=== PATIENT | male | born 1985 | race Caucasian/White ===

== ENCOUNTER 2018-11-07 06:28 | Emergency (ER) | payer OTHER ==
--- NOTE | 2018-11-07 07:28 | EDM.PDOC ---
ED HPI GENERAL MEDICAL PROBLEM - General Chief Complaint: General Stated Complaint: LOW BODY TEMP Time Seen by Provider: 11/07/18 06:58 Source of Information: Reports: Patient, RN Notes Reviewed - History of Present Illness INITIAL COMMENTS - FREE TEXT/NARRATIVE: Patient has been having intermittent abdominal pain for about the last 3 weeks primarily right lower abdomen. At the clinic last , had normal labs at that time, CT per his account showed some "mild colitis". He states he was given recommendation to get a colonoscopy, the clinic is to be calling him this morning to give him an appointment for that. He has had chills the last couple of days, this morning states he felt clammy, his took his temp and it was "93.7. Upon arrival to ED temporal temp 96.6, rectal 100.2. He has had no Nausea or vomiting. Appetite has been mildly diminished the last few days but in general has been eating and drinking okay. States that however when he does eat then he will often get increased abdominal pain. He has not been having diarrhea. He states his stools have been somewhat pencil thin for at least 2 or 3 years. He is not aware of any history of colon cancer in his family. Abdomen Pain Score (Numeric/FACES): 2 - Related Data Allergies Allergy/AdvReac Type Severity Reaction Status Date / Time No Known Allergies Allergy Verified 11/07/18 06:40 Home Meds: Home Meds Cyclobenzaprine [Flexeril] 5 mg PO DAILY PRN 11/07/18 [History] LORazepam [Ativan] 0.5 mg PO TID PRN #14 tablet 11/07/18 [Rx] Past Medical History Cardiovascular History: Reports: Other (See Below) Other Cardiovascular History: hyperthropic cardiomyopathy Gastrointestinal History: Reports: Chronic Constipation, Other (See Below) Other Gastrointestinal History: colitis? Musculoskeletal History: Reports: Back Pain, Chronic Psychiatric History: Reports: Anxiety - Past Surgical History HEENT Surgical History: Reports: Tonsillectomy Musculoskeletal Surgical History: Reports: Other (See Below) Other Musculoskeletal Surgeries/Procedures:: disectomy Social & Family History - Tobacco Use Smoking Status *Q: Never Smoker - Caffeine Use Caffeine Use: Reports: None - Recreational Drug Use Recreational Drug Use: Yes Drug Use in Last 12 Months: No Recreational Drug Type: Reports: Marijuana/Hashish Recreational Drug Use Frequency: Not Used In Over 6 Months ED ROS GENERAL - Review of Systems Review Of Systems: See Below Constitutional: Reports: Chills, Other (Patient felt clammy this morning) HEENT: Denies: Sinus Problem, Throat Pain Respiratory: Denies: Shortness of Breath, Cough Cardiovascular: Denies: Chest Pain GI/Abdominal: Reports: Abdominal Pain (Mild intermittent right lower abdomen for the past 2 or 3 weeks), Decreased Appetite. Denies: Constipation, Diarrhea , Nausea, Vomiting : Reports: No Symptoms Musculoskeletal: Reports: No Symptoms Skin: Reports: No Symptoms ED EXAM, GENERAL - Physical Exam Exam: See Below General Appearance: Alert, Anxious Eye Exam: Bilateral Eye: PERRL Head: Atraumatic. No: Facial Swelling Neck: Supple Respiratory/Chest: No Respiratory Distress, Lungs Clear, Normal Breath Sounds Cardiovascular: Regular Rate, Rhythm GI/Abdominal: Soft, Other (Very mild tenderness right lower abdomen, remainder of abdomen soft and nontender). No: Guarding, Rebound Back Exam: No: CVA Tenderness (L), CVA Tenderness (R) Extremities: Normal Inspection Neurological: Alert, Oriented, No Motor/Sensory Deficits Psychiatric: Normal Affect Skin Exam: Warm, Dry, Normal Color Course - Vital Signs Last Recorded V/S: Last Vital Signs Temp 98.0 F 11/07/18 08:34 Pulse 74 11/07/18 08:34 Resp 16 11/07/18 08:34 BP 122/80 11/07/18 08:34 Pulse Ox 96 11/07/18 08:34 - Orders/Labs/Meds Labs: Laboratory Tests 11/07/18 11/07/18 11/07/18 Range/Units 07:21 07:21 07:21 WBC 5.08 (4.23-9.07) K/mm3 RBC 5.50 (4.63-6.08) M/mm3 Hgb 15.4 (13.7-17.5) gm/L Hct 44.6 (40.1-51.0) % MCV 81.1 (79.0-92.2) fl MCH 28.0 (25.7-32.2) pg MCHC 34.5 (32.2-35.5) g/dl RDW Std Deviation 39.5 (35.1-43.9) fL Plt Count 215 (163-337) K/mm3 MPV 10.9 (9.4-12.3) fl Neut % (Auto) 70.4 H (34.0-67.9) % Lymph % (Auto) 19.9 L (21.8-53.1) % [place] % (Auto) 7.5 (5.3-12.2) % Eos % (Auto) 1.6 (0.8-7.0) Baso % (Auto) 0.4 (0.1-1.2) % Neut # (Auto) 3.58 (1.78-5.38) K/mm3 Lymph # (Auto) 1.01 L (1.32-3.57) K/mm3 [place] # (Auto) 0.38 (0.30-0.82) K/mm3 Eos # (Auto) 0.08 (0.04-0.54) K/mm3 Baso # (Auto) 0.02 (0.01-0.08) K/mm3 Sodium 139 (136-145) mEq/L Potassium 3.5 (3.5-5.1) mEq/L Chloride 104 (98-107) mEq/L Carbon Dioxide 26 (21-32) mEq/L Anion Gap 12.5 (5-15) BUN 10 (7-18) mg/dL Creatinine 1.1 (0.7-1.3) mg/dL Est Cr Clr Drug Dosing 108.95 mL/min Estimated GFR (MDRD) > 60 (>60) mL/min BUN/Creatinine Ratio 9.1 L (14-18) Glucose 98 (74-106) mg/dL Calcium 8.7 (8.5-10.1) mg/dL Total Bilirubin 1.6 H (0.2-1.0) mg/dL AST 13 L (15-37) U/L ALT 30 (16-63) U/L Alkaline Phosphatase 56 (46-116) U/L C-Reactive Protein < 0.2 (<1.0) mg/dL Total Protein 7.0 (6.4-8.2) g/dl Albumin 4.0 (3.4-5.0) g/dl Globulin 3.0 gm/dL Albumin/Globulin Ratio 1.3 (1-2) Meds: Medications Discontinued Medications Generic Name Dose Route Start Last Admin Trade Name Freq PRN Reason Stop Dose Admin Lorazepam 0.5 mg 02/25/19 08:26 11/07/18 08:33 Ativan PO 11/07/18 08:27 0.5 mg ONETIME ONE Administration - Re-Assessments/Exams Free Text/Narrative Re-Assessment/Exam: 11/07/18 09:12 White blood count did come back normal, C-reactive protein less than 0.2., He did just have CT scan done at clinic 4 days ago. Based on his symptoms the plan for colonoscopy is certainly appropriate. He states the clinic is going to be calling him this morning to get him set up for that. He states he has chronic underlying anxiety and now feeling much more anxious worrying about colon cancer , something of that nature. That is mainly why he is here this morning. We have given Ativan 0.5 mg orally right now and will allow him to continue taking 0.5 mg every 8-12 hours when necessary severe anxiety, I did discuss driving precautions with him. Discharge instructions as documented. Departure - Departure Time of Disposition: 08:27 Disposition: Home, Self-Care 01 Condition: Fair Clinical Impression: Anxiety Abdominal pain Qualifiers: Abdominal location: right lower quadrant Qualified Code(s): R10.31 - Right lower quadrant pain - Discharge Information Prescriptions: LORazepam [Ativan] 0.5 mg PO TID PRN #14 tablet PRN Reason: Anxiety Instructions: Generalized Anxiety Disorder, Adult, Abdominal Pain, Adult, Easy- to-Read Referrals: Bhupendra Macias Jr, MD [Primary Care Provider] - Forms: ED Department Discharge Additional Instructions: Drink plenty of water to maintain hydration, clear liquids and bland diet as tolerated. Your white blood count and a different marker for infection were both normal this morning. The clinic should be calling you for an appointment to get scheduled for colonoscopy. You've been given a dose of Ativan 0.5 mg orally here in the ED. Continue that every 8-12 hours if needed for severe anxiety. Do not drive when taking this medication if you feel at all sleepy, drowsy or dizzy. Follow-up with Dr. Macias as needed. Return to ED as needed if symptoms worsening in any way.
[2018-11-07] MEDS ORDERED: LORazepam 0.5 MG Tab PO ONE (08:26)
== END 2018-11-07 08:38 | disposition home or self-care (01) ==
LOC: JD.ED 06:28
DX: F41.9 Anxiety disorder, unspecified (principal); R10.31 Right lower quadrant pain; Z98.890 Other specified postprocedural states
CPT/HCPCS: 36415; 80053; 85025; 86140; 99284; A9270; 99283

== ENCOUNTER 2020-07-28 19:25 | Emergency (ER) | payer OTHER ==
--- NOTE | 2020-07-28 20:10 | EDM.PDOC ---
ED HPI GENERAL MEDICAL PROBLEM - General Chief Complaint: Lower Extremity Injury/Pain Stated Complaint: POSS BROKEN RIGHT TOE Time Seen by Provider: 07/28/20 19:51 Source of Information: Reports: Patient, RN Notes Reviewed History Limitations: Reports: No Limitations - History of Present Illness INITIAL COMMENTS - FREE TEXT/NARRATIVE: Patient is a 35-year-old male who presents to the ED for the evaluation of a right toe injury. Patient notes that he was in his home, in a darkened hallway and he ended up stubbing his right third toe on a ottoman. This was roughly 1 hour prior to arrival to the ER. He said it looked dislocated. He tried to reposition it, but it did not seem to help much. There is some minor pain, and he states he just cannot move the toe like he used to. He did not take any sort of pain medications prior to coming to the ER. Patient denies any other sick- like symptoms, fever/chills, cough/shortness of breath, nausea/vomiting/diarrhea. Toe-[place] Pain Score (Numeric/FACES): 4 - Related Data Allergies Allergy/AdvReac Type Severity Reaction Status Date / Time No Known Allergies Allergy Verified 07/28/20 19:51 Home Meds: Home Meds Cyclobenzaprine [Flexeril] 5 mg PO DAILY PRN 11/07/18 [History] Past Medical History Cardiovascular History: Reports: Other (See Below) Other Cardiovascular History: hyperthropic cardiomyopathy Gastrointestinal History: Reports: Chronic Constipation, Other (See Below) Other Gastrointestinal History: colitis? Musculoskeletal History: Reports: Back Pain, Chronic Psychiatric History: Reports: Anxiety - Infectious Disease History Infectious Disease History: Reports: Chicken Pox - Past Surgical History HEENT Surgical History: Reports: Tonsillectomy GI Surgical History: Reports: Colonoscopy Neurological Surgical History: Reports: Discectomy Musculoskeletal Surgical History: Reports: Other (See Below) Other Musculoskeletal Surgeries/Procedures:: disectomy Social & Family History - Tobacco Use Tobacco Use Status *Q: Never Tobacco User Second Hand Smoke Exposure: No - Caffeine Use Caffeine Use: Reports: None - Recreational Drug Use Recreational Drug Use: No - Living Situation & Occupation Living situation: Reports: Single Occupation: Employed Review of Systems - Review of Systems Review Of Systems: Comprehensive ROS is negative, except as noted in HPI. ED EXAM, GENERAL - Physical Exam Exam: See Below Exam Limited By: No Limitations General Appearance: Alert, WD/WN, No Apparent Distress Respiratory/Chest: No Respiratory Distress, Lungs Clear, Normal Breath Sounds, No Accessory Muscle Use, Chest Non-Tender Cardiovascular: Normal Peripheral Pulses, Regular Rate, Rhythm, No Murmur Peripheral Pulses: 2+: Dorsalis Pedis (L), Dorsalis Pedis (R) Extremities: Normal Inspection, Normal Capillary Refill, Limited Range of Motion (of right 3rd toe) Neurological: Alert, Oriented, Normal Cognition, No Motor/Sensory Deficits Psychiatric: Normal Affect, Normal Mood Skin Exam: Warm, Dry, Intact, Normal Color, No Rash Course - Vital Signs Last Recorded V/S: Last Vital Signs Temp 98.3 F 07/28/20 19:49 Pulse 98 07/28/20 19:49 Resp 16 07/28/20 19:49 BP 133/91 H 07/28/20 19:49 Pulse Ox 98 07/28/20 19:49 - Orders/Labs/Meds Orders: Active Orders 24 hr Category Date Time Status Toes Third Digit Rt T7 [CR] Stat Exams 07/28/20 20:07 Ordered DME for Discharge [COMM] Routine Oth 07/28/20 20:57 Ordered - Re-Assessments/Exams Free Text/Narrative Re-Assessment/Exam: 07/28/20 20:10 Patient presents to the ED for evaluation of a right toe injury. We will get x- rays for evaluation. Patient is not requesting anything for pain at this time. 07/28/20 20:57 The patient did end up fracturing his third toe on his right foot, this is at the proximal base of the proximal phalanx. This does not appear to be displaced, I reviewed the x-rays with Dr. Shepherd and he states to place him in a postop shoe and have him follow-up sometime in a week or 2. We will discharge home with general recommendations and do as such. Departure - Departure Time of Disposition: 20:58 Disposition: Home, Self-Care 01 Condition: Good Clinical Impression: Fracture of toe of right foot Qualifiers: Encounter type: initial encounter Toe: lesser toe Fracture type: closed Phalanx: proximal Fracture alignment: nondisplaced Qualified Code(s): S92.514A - Nondisplaced fracture of proximal phalanx of right lesser toe(s), initial encounter for closed fracture - Discharge Information *PRESCRIPTION DRUG MONITORING PROGRAM REVIEWED*: No *COPY OF PRESCRIPTION DRUG MONITORING REPORT IN PATIENT HEBER: No Instructions: Toe Fracture, [id number] Referrals: Bhupendra Macias Jr, MD [Primary Care Provider] - Forms: ED Department Discharge Additional Instructions: You have been evaluated in the ED for your right third toe injury. Your x-ray demonstrated a fracture of the base of the first phalanx of your third toe. This does not appear to be displaced, and a review with our promotions specialist notes that this will likely not need pinning and should heal by itself. You were given a postop shoe to wear, to provide further healing of the toe. Please use ice as tolerated to the affected area. Please try to elevate the affected area to relieve swelling. You may take Tylenol 500 mg or ibuprofen 600mg q6 hrs for pain relief. Please do so until you have a tolerable level of pain with activity. Do not exceed 4000mg Tylenol or 3200mg ibuprofen in a 24 hour time period. Please follow-up with Dr. Shepherd or his PA Leandra Andrea in a week to 10 days time, to make sure that the fracture is healing as appropriate. Their telephone number is [phone]. Please return to ED if your symptoms should change or worsen. Sepsis Event Note (ED) - Evaluation Sepsis Screening Result: No Definite Risk - Focused Exam Vital Signs: Vital Signs Temp Pulse Resp BP Pulse Ox 07/28/20 19:49 98.3 F 98 16 133/91 H 98 - My Orders Last 24 Hours: My Active Orders 07/28/20 20:07 Toes Third Digit Rt T7 [CR] Stat 07/28/20 20:57 DME for Discharge [COMM] Routine - Assessment/Plan Last 24 Hours: My Active Orders 07/28/20 20:07 Toes Third Digit Rt T7 [CR] Stat 07/28/20 20:57 DME for Discharge [COMM] Routine
--- NOTE | 2020-07-29 13:45 | CR ---
PROCEDURE INFORMATION: Exam: XR Right Toe(s) Exam date and time: 07/28/2020 8:15 PM Age: 35 years old Clinical indication: Injury or trauma; Blunt trauma; Toes; Right lesser toe(s); Injury date: 07/28/2020; Injury details: Stubbed toe in hallway, pain. . . . 3rd digit right foot TECHNIQUE: Imaging protocol: XR Right toes. Views: Minimum 2 views. COMPARISON: No relevant prior studies available. FINDINGS: Bones/joints: There is an acute nondisplaced fracture through the proximal aspect of the 3rd digit proximal phalanx. The fracture does not appear to involve the articular surface. The bones are otherwise intact and normal in appearance. The joints are normally aligned and articulated. Soft tissues: The soft tissues are within normal limits. IMPRESSION: Acute nondisplaced fracture through the proximal phalanx of the 3rd toe. Thank you for allowing us to participate in the care of your patient. Dictated and Authenticated by: Sabina Perez MD 07/28/2020 10:07 PM Central Time ([place] & [place]) [place]
== END 2020-07-28 21:15 | disposition home or self-care (01) ==
LOC: JD.ED 19:25
DX: S92.514A Nondisplaced fracture of proximal phalanx of right lesser toe(s), initial encounter for closed fracture (principal); Z90.49 Acquired absence of other specified parts of digestive tract; W22.8XXA Striking against or struck by other objects, initial encounter; Y92.009 Unspecified place in unspecified non-institutional (private) residence as the place of occurrence of the external cause
CPT/HCPCS: 73660-26-T7; 73660-T7; 99282; 99283-25

== ENCOUNTER 2021-03-11 13:32 | Emergency (ER) | payer OTHER ==
--- NOTE | 2021-03-11 14:22 | EDM.PDOC ---
ED HPI GENERAL MEDICAL PROBLEM - General Chief Complaint: Cardiovascular Problem Stated Complaint: DIZZY AND LIGHTHEADED Time Seen by Provider: 03/11/21 13:58 Source of Information: Reports: Patient, RN Notes Reviewed - History of Present Illness INITIAL COMMENTS - FREE TEXT/NARRATIVE: 35 yr old male has been having some mild lightheadedness and dizziness the past few day and also feeling mildly short of breath primarily at rest. No exertional symptoms, he walked 3 miles yesterday with no sx when walking. Hx IHSS diagnosed quite a few yrs ago. He is on no meds for that. He is due for a 2 yr follow up echo in about 2 months. No recent cough, fever, chills. He has had both moderna covid vaccinations. Headache Pain Score (Numeric/FACES): 5 - Related Data Allergies Allergy/AdvReac Type Severity Reaction Status Date / Time No Known Allergies Allergy Verified 03/11/21 13:41 Home Meds: Home Meds Cyclobenzaprine [Flexeril] 5 mg PO DAILY PRN 11/07/18 [History] Past Medical History HEENT History: Reports: None Cardiovascular History: Reports: Other (See Below) Other Cardiovascular History: hyperthropic cardiomyopathy Respiratory History: Reports: None Gastrointestinal History: Reports: Chronic Constipation, Other (See Below) Other Gastrointestinal History: colitis? Genitourinary History: Reports: None Musculoskeletal History: Reports: Back Pain, Chronic Neurological History: Reports: None Psychiatric History: Reports: Anxiety Endocrine/Metabolic History: Reports: None Hematologic History: Reports: None Immunologic History: Reports: None Oncologic (Cancer) History: Reports: None Dermatologic History: Reports: None - Infectious Disease History Infectious Disease History: Reports: Chicken Pox - Past Surgical History HEENT Surgical History: Reports: Tonsillectomy GI Surgical History: Reports: Colonoscopy Male Surgical History: Reports: None Neurological Surgical History: Reports: Discectomy Musculoskeletal Surgical History: Reports: Other (See Below) Other Musculoskeletal Surgeries/Procedures:: disectomy Social & Family History - Family History Family Medical History: No Pertinent Family History - Tobacco Use Tobacco Use Status *Q: Never Tobacco User - Caffeine Use Caffeine Use: Reports: Soda - Recreational Drug Use Recreational Drug Use: No - Living Situation & Occupation Living situation: Reports: Single Occupation: Employed ED ROS GENERAL - Review of Systems Review Of Systems: See Below Constitutional: Denies: Fever, Chills, Diaphoresis Respiratory: Reports: Shortness of Breath Cardiovascular: Reports: Lightheadedness. Denies: Chest Pain GI/Abdominal: Denies: Abdominal Pain, Nausea, Vomiting Musculoskeletal: Denies: Shoulder Pain, Arm Pain, Back Pain Skin: Reports: No Symptoms Neurological: Reports: Dizziness. Denies: Numbness, Tingling, Trouble Speaking, Difficulty Walking, Weakness ED EXAM, GENERAL - Physical Exam Exam: See Below General Appearance: Alert, No Apparent Distress Head: Atraumatic Neck: Supple, Other (No JVD) Respiratory/Chest: No Respiratory Distress, Lungs Clear, Normal Breath Sounds. No: Rales, Rhonchi, Wheezing Cardiovascular: Regular Rate, Rhythm GI/Abdominal: Soft, Non-Tender Back Exam: No: CVA Tenderness (L), CVA Tenderness (R) Extremities: Non-Tender. No: Pedal Edema, Leg Pain, Redness Neurological: Alert, Oriented, No Motor/Sensory Deficits Skin Exam: Warm, Dry, Normal Color, No Rash #1 Interpretation EKG Date: 03/11/21 Rhythm: NSR [place]: Normal P-Wave: Present QRS: Normal ST-T: Other (t wave inversion lead III, no st elevation or depression) Course - Vital Signs Last Recorded V/S: Last Vital Signs Temp 97.4 F 03/11/21 13:46 Pulse 75 03/11/21 13:46 Resp 18 03/11/21 13:46 BP 123/84 03/11/21 13:46 Pulse Ox 99 03/11/21 13:46 Orthostatic Blood Pressure [ 135/93 Standing] Orthostatic Blood Pressure [ 138/95 Sitting] Orthostatic Blood Pressure [ 123/84 Supine] - Orders/Labs/Meds Labs: Laboratory Tests 03/11/21 03/11/21 Range/Units 14:46 14:46 WBC 6.20 (4.23-9.07) K/mm3 RBC 5.49 (4.63-6.08) M/mm3 Hgb 15.7 (13.7-17.5) gm/dl Hct 44.3 (40.1-51.0) % MCV 80.7 (79.0-92.2) fl MCH 28.6 (25.7-32.2) pg MCHC 35.4 (32.2-35.5) g/dl RDW Std Deviation 39.3 (35.1-43.9) fL Plt Count 230 (163-337) K/mm3 MPV 10.5 (9.4-12.3) fl Neut % (Auto) 61.8 (34.0-67.9) % Lymph % (Auto) 28.4 (21.8-53.1) % [place] % (Auto) 8.5 (5.3-12.2) % Eos % (Auto) 1.0 (0.8-7.0) Baso % (Auto) 0.3 (0.1-1.2) % Neut # (Auto) 3.83 (1.78-5.38) K/mm3 Lymph # (Auto) 1.76 (1.32-3.57) K/mm3 [place] # (Auto) 0.53 (0.30-0.82) K/mm3 Eos # (Auto) 0.06 (0.04-0.54) K/mm3 Baso # (Auto) 0.02 (0.01-0.08) K/mm3 Sodium 142 (136-145) mEq/L Potassium 4.0 (3.5-5.1) mEq/L Chloride 104 (98-107) mEq/L Carbon Dioxide 25 (21-32) mEq/L Anion Gap 17.0 H (5-15) BUN 11 (7-18) mg/dL Creatinine 0.9 (0.7-1.3) mg/dL Est Cr Clr Drug Dosing 130.70 mL/min Estimated GFR (MDRD) > 60 (>60) mL/min BUN/Creatinine Ratio 12.2 L (14-18) Glucose 91 (70-99) mg/dL Calcium 9.4 (8.5-10.1) mg/dL Total Bilirubin 0.9 (0.2-1.0) mg/dL AST 22 (15-37) U/L ALT 54 (16-63) U/L Alkaline Phosphatase 67 (46-116) U/L Total Protein 7.5 (6.4-8.2) g/dl Albumin 4.0 (3.4-5.0) g/dl Globulin 3.5 gm/dL Albumin/Globulin Ratio 1.1 (1-2) TSH 3rd Generation 0.859 (0.358-3.74) uIU/mL - Re-Assessments/Exams Free Text/Narrative Re-Assessment/Exam: 03/12/21 16:34 CBC, CMP normal, TSH normal, EKG did not show any acute findings. Sats are good, NSR with no ectopy, discharge instr. as documented. Departure - Departure Time of Disposition: 16:05 Disposition: Home, Self-Care 01 Condition: Fair Clinical Impression: Dizziness of unknown cause, Hypertrophic cardiomyopathy Dyspnea Qualifiers: Dyspnea type: unspecified Qualified Code(s): R06.00 - Dyspnea, unspecified Instructions: Dizziness, [id number] Referrals: Sander Red MD [Primary Care Provider] - Forms: ED Department Discharge Additional Instructions: Continue to drink plenty of water to maintain hydration. Continue regular exercise. Return to ED if symptoms worsening in any way. See Dr Kelly as planned. Sepsis Event Note (ED) - Evaluation Sepsis Screening Result: No Definite Risk
== END 2021-03-11 16:15 | disposition home or self-care (01) ==
LOC: JD.ED 13:32
DX: R42 Dizziness and giddiness (principal); I42.2 Other hypertrophic cardiomyopathy; R06.02 Shortness of breath
CPT/HCPCS: 36415; 80053; 84443; 85025; 93010; 99283; 99285-25

== ENCOUNTER 2021-03-13 20:19 | Emergency (ER) | payer OTHER ==
--- NOTE | 2021-03-13 21:21 | EDM.PDOC ---
ED HPI GENERAL MEDICAL PROBLEM - General Chief Complaint: General Stated Complaint: RASH ON BOTH SIDES OF STOMACH-NOT FEELING WELL Time Seen by Provider: 03/13/21 20:42 Source of Information: Reports: Patient History Limitations: Reports: No Limitations - History of Present Illness INITIAL COMMENTS - FREE TEXT/NARRATIVE: Al is a 35-year-old male who has numerous somatic complaints. Patient states he was treated for a fungal ear infection on his right ear and has been followed up by ENT 2 weeks ago initially and 1 week ago and is on acetic acid drops. Patient is also complaining of having some frontal sinus pressure which he describes as mild for which the ENT did not feel he had a sinus infection and his PCP which he saw earlier today felt this was more related to anxiety. Patient denies ever having sinusitis. He denies any fever chills nausea vomiting or diarrhea and currently does not have a headache. Patient is complaining of very mild rash on his lower abdomen on the left lower it appears to be circular in nature and about the size of a half dollar and the right side is less formed both are nontender. Patient denies any current sore throat. Onset: Gradual Duration: Week(s): (2) Location: Reports: Head, Abdomen Quality: Reports: Ache Severity: Mild Headache Pain Score (Numeric/FACES): 3 - Related Data Allergies Allergy/AdvReac Type Severity Reaction Status Date / Time No Known Allergies Allergy Verified 03/13/21 20:30 Home Meds: Home Meds Acetic Acid 5 drop EARRT TID 03/13/21 [History] Clotrimazole [Mycelex] 1 tab PO ASDIRECTED 03/13/21 [History] FLUoxetine HCl [Prozac] 20 mg PO DAILY 03/13/21 [History] Hydrocort/Neomycin/Polymyxin B [Jagyysej-Aohqgpwjg-XR Otic Susp] 10 ml EARRT QID #1 bottle 03/13/21 [Rx] Past Medical History HEENT History: Reports: None Cardiovascular History: Reports: Other (See Below) Other Cardiovascular History: hyperthropic cardiomyopathy Respiratory History: Reports: None Gastrointestinal History: Reports: Chronic Constipation, Other (See Below) Other Gastrointestinal History: colitis? Genitourinary History: Reports: None Musculoskeletal History: Reports: Back Pain, Chronic Neurological History: Reports: None Psychiatric History: Reports: Anxiety Endocrine/Metabolic History: Reports: Obesity/BMI 30+ Hematologic History: Reports: None Immunologic History: Reports: None Oncologic (Cancer) History: Reports: None Dermatologic History: Reports: None - Infectious Disease History Infectious Disease History: Reports: Chicken Pox - Past Surgical History HEENT Surgical History: Reports: Tonsillectomy GI Surgical History: Reports: Colonoscopy Neurological Surgical History: Reports: Discectomy Musculoskeletal Surgical History: Reports: Other (See Below) Other Musculoskeletal Surgeries/Procedures:: disectomy Social & Family History - Family History Family Medical History: No Pertinent Family History - Tobacco Use Tobacco Use Status *Q: Never Tobacco User - Caffeine Use Caffeine Use: Reports: Soda - Recreational Drug Use Recreational Drug Use: No - Living Situation & Occupation Living situation: Reports: Single Occupation: Employed ED ROS GENERAL - Review of Systems Review Of Systems: See Below Constitutional: Reports: No Symptoms. Denies: Fever, Chills, Malaise HEENT: Reports: Ear Pain, Sinus Problem. Denies: Ear Discharge, Eye Discharge Respiratory: Reports: No Symptoms. Denies: Shortness of Breath, Cough Cardiovascular: Reports: No Symptoms Endocrine: Reports: No Symptoms GI/Abdominal: Reports: No Symptoms : Reports: No Symptoms Musculoskeletal: Reports: No Symptoms Skin: Reports: Rash, Erythema Neurological: Reports: No Symptoms Psychiatric: Reports: No Symptoms ED EXAM, GENERAL - Physical Exam Exam: See Below Exam Limited By: No Limitations General Appearance: Alert, No Apparent Distress Ear Exam: Right Ear: Erythema, Swelling, TM Dull, TM Red, TM Bulging Head: Atraumatic, Normocephalic. No: Sinus Tenderness Neck: Normal Inspection, Supple, Non-Tender Respiratory/Chest: No Respiratory Distress Cardiovascular: Regular Rate, Rhythm GI/Abdominal: Normal Bowel Sounds, Soft, Non-Tender Extremities: Normal Inspection Neurological: Alert, Oriented Psychiatric: Normal Affect Skin Exam: Warm, Erythema Lymphatic: No Adenopathy Course - Vital Signs Text/Narrative:: I am planning on putting the patient on an antibiotic eardrop for his right ear. I do not feel the rash he has is anything other than a viral exanthem and very mild. I am recommending Afrin hczx-mka-qhjpvye for sinus pressure and have instructed him on how I want him to use that. He is to follow-up with his ENT doctor over the next 14 days. He may return to ER if symptoms are worse. Last Recorded V/S: Last Vital Signs Temp 97.8 F 03/13/21 20:27 Pulse 105 H 03/13/21 20:27 Resp 16 03/13/21 20:27 BP 178/97 H 03/13/21 20:27 Pulse Ox 94 L 03/13/21 20:27 Departure - Departure Time of Disposition: 21:44 Disposition: Home, Self-Care 01 Condition: Good Clinical Impression: Otitis media - Discharge Information Referrals: Sander Red MD [Primary Care Provider] - Forms: ED Department Discharge Additional Instructions: Abscess prescribed follow-up with ENT in 2 weeks if not improving. Sooner if worse. Follow-up with PCP if symptoms continue. Return to ER symptoms are worse. Sepsis Event Note (ED) - Evaluation Sepsis Screening Result: No Definite Risk - Focused Exam Vital Signs: Vital Signs Temp Pulse Resp BP Pulse Ox 03/13/21 20:27 97.8 F 105 H 16 178/97 H 94 L
== END 2021-03-13 21:59 | disposition home or self-care (01) ==
LOC: JD.ED 20:19
DX: H66.91 Otitis media, unspecified, right ear (principal)
CPT/HCPCS: 99283

== ENCOUNTER 2021-03-18 06:37 | Emergency (ER) | payer OTHER ==
--- NOTE | 2021-03-18 07:31 | EDM.PDOC ---
ED HPI GENERAL MEDICAL PROBLEM - General Chief Complaint: Gastrointestinal Problem Stated Complaint: DIARRHEA/MENTAL HEALTH ISSUES Time Seen by Provider: 03/18/21 06:58 Source of Information: Reports: Patient, RN Notes Reviewed - History of Present Illness INITIAL COMMENTS - FREE TEXT/NARRATIVE: 35 yr old male with watery diarrhea for the last 2 to 3 days, frequent episodes per day. Has made him real anxious, not able to sleep well the last couple of nights. No N/v or current abd pain. Has been on abx, had cdif checked at clinic yesterday and that was neg. - Related Data Allergies Allergy/AdvReac Type Severity Reaction Status Date / Time No Known Allergies Allergy Verified 03/13/21 20:30 Home Meds: Home Meds Acetic Acid 5 drop EARRT TID 03/13/21 [History] Clotrimazole [Mycelex] 1 tab PO ASDIRECTED 03/13/21 [History] FLUoxetine HCl [Prozac] 20 mg PO DAILY 03/13/21 [History] Hydrocort/Neomycin/Polymyxin B [Oirjivta-Pvsrbpreg-JS Otic Susp] 10 ml EARRT QID #1 bottle 03/13/21 [Rx] LORazepam [Ativan] 0.5 mg PO BID PRN #4 tab 03/18/21 [Rx] Past Medical History HEENT History: Reports: None Cardiovascular History: Reports: Other (See Below) Other Cardiovascular History: hyperthropic cardiomyopathy Respiratory History: Reports: None Gastrointestinal History: Reports: Chronic Constipation, Other (See Below) Other Gastrointestinal History: colitis? Genitourinary History: Reports: None Musculoskeletal History: Reports: Back Pain, Chronic Neurological History: Reports: None Psychiatric History: Reports: Anxiety Endocrine/Metabolic History: Reports: Obesity/BMI 30+ Hematologic History: Reports: None Immunologic History: Reports: None Oncologic (Cancer) History: Reports: None Dermatologic History: Reports: None - Infectious Disease History Infectious Disease History: Reports: Chicken Pox - Past Surgical History HEENT Surgical History: Reports: Tonsillectomy GI Surgical History: Reports: Colonoscopy Neurological Surgical History: Reports: Discectomy Musculoskeletal Surgical History: Reports: Other (See Below) Other Musculoskeletal Surgeries/Procedures:: disectomy Social & Family History - Family History Family Medical History: No Pertinent Family History - Tobacco Use Tobacco Use Status *Q: Never Tobacco User Second Hand Smoke Exposure: No - Caffeine Use Caffeine Use: Reports: None - Recreational Drug Use Recreational Drug Use: No - Living Situation & Occupation Living situation: Reports: Single Occupation: Employed ED ROS GENERAL - Review of Systems Review Of Systems: See Below Constitutional: Denies: Fever, Chills, Diaphoresis HEENT: Reports: No Symptoms Respiratory: Denies: Shortness of Breath Cardiovascular: Denies: Chest Pain GI/Abdominal: Reports: Diarrhea. Denies: Abdominal Pain, Hematochezia, Melena, Nausea, Vomiting Musculoskeletal: Reports: No Symptoms Skin: Reports: No Symptoms Neurological: Reports: No Symptoms Psychiatric: Reports: Anxiety ED EXAM, NEURO - Physical Exam Exam: See Below General Appearance: Alert, No Apparent Distress Throat/Mouth: Normal Inspection Head Exam: Atraumatic Neck: Supple Respiratory/Chest: No Respiratory Distress, Lungs Clear, Normal Breath Sounds Cardiovascular: Regular Rate, Rhythm GI/Abdominal: Soft, Non-Tender. No: Guarding Neurological: Alert, No Motor/Sensory Deficits Extremities: Normal Inspection Psychiatric: Normal Affect, Normal Mood Skin Exam: Warm, Dry, Normal Color, No Rash Course - Vital Signs Last Recorded V/S: Last Vital Signs Temp 97.0 F 03/18/21 07:37 Pulse 74 03/18/21 07:37 Resp 16 03/18/21 07:37 BP 116/81 03/18/21 07:37 Pulse Ox 96 03/18/21 07:37 Departure - Departure Time of Disposition: 07:26 Disposition: Home, Self-Care 01 Clinical Impression: Diarrhea, Anxiety, Insomnia - Discharge Information Prescriptions: LORazepam [Ativan] 0.5 mg PO BID PRN #4 tab PRN Reason: Anxiety Instructions: Diarrhea, Adult, Generalized Anxiety Disorder, Adult Referrals: Sander Red MD [Primary Care Provider] - Forms: ED Department Discharge Additional Instructions: Clear liquids only until this evening as discussed. Than very careful bland diet as tolerated. Probiotic 3 times today and than twice daily for a week. Follow up clinic if not much better and getting back towards normal within 2 to 3 days as expected. Ativan 0.5 mg this AM to help you relax and sleep for the next few nights if needed. Prescription has been sent electronic to [facility]. Sepsis Event Note (ED) - Evaluation Sepsis Screening Result: No Definite Risk - Focused Exam Vital Signs: Vital Signs Temp Pulse Resp BP Pulse Ox 03/18/21 07:37 97.0 F 74 16 116/81 96 03/18/21 06:46 98.5 F 85 18 150/95 H 98
== END 2021-03-18 07:37 | disposition home or self-care (01) ==
LOC: JD.ED 06:37
DX: R19.7 Diarrhea, unspecified (principal); F41.9 Anxiety disorder, unspecified; G47.00 Insomnia, unspecified; E66.9 Obesity, unspecified; Z68.30 Body mass index [BMI] 30.0-30.9, adult
CPT/HCPCS: 99283

== ENCOUNTER 2021-03-25 06:20 | Emergency (ER) | payer OTHER ==
--- NOTE | 2021-03-25 07:14 | EDM.PDOC ---
ED HPI GENERAL MEDICAL PROBLEM - General Chief Complaint: Gastrointestinal Problem Stated Complaint: DIARRHEA Time Seen by Provider: 03/25/21 07:13 - History of Present Illness INITIAL COMMENTS - FREE TEXT/NARRATIVE: 35-year-old male presents the emergency room with diarrhea. Patient states that started about 11 days ago. He is lost but 19 pounds. He was seen initially and was tested had cultures done including C. difficile. And these were all negative. Patient's diarrhea started after infection she was taking cefdinir for sinus infection for couple of days. The antibiotic was stopped. Patient gets intermittent abdominal discomfort that is quite bothersome for mostly in the lower abdomen. He denies any burning or frequency with urination. He has up to 15 BMs a day unformed. These usually have a little bit of bright red blood associated with it. Patient denies fevers or chills. Patient was seen again in the walk-in clinic yesterday he was retested and his C. difficile came back positive last night for toxin B. Abdomen Pain Score (Numeric/FACES): 4 - Related Data Allergies Allergy/AdvReac Type Severity Reaction Status Date / Time No Known Allergies Allergy Verified 03/25/21 06:43 Home Meds: Home Meds LORazepam [Ativan] 0.5 mg PO BID PRN #4 tab 03/18/21 [Rx] Cyclobenzaprine [Flexeril] 5 mg PO DAILY PRN 03/25/21 [History] Ondansetron [Zofran ODT] 4 mg PO Q6H PRN #12 tab.dis 03/25/21 [Rx] Vancomycin [Vancocin 125 MG Capsule] 125 mg PO QID #40 cap 03/25/21 [Rx] Past Medical History HEENT History: Reports: Otitis Media Cardiovascular History: Reports: Other (See Below) Other Cardiovascular History: hyperthropic cardiomyopathy Respiratory History: Reports: None Gastrointestinal History: Reports: Chronic Constipation, Other (See Below) Other Gastrointestinal History: colitis? Genitourinary History: Reports: None Musculoskeletal History: Reports: Back Pain, Chronic Neurological History: Reports: None Psychiatric History: Reports: Anxiety Endocrine/Metabolic History: Reports: Obesity/BMI 30+ Hematologic History: Reports: None Immunologic History: Reports: None Oncologic (Cancer) History: Reports: None Dermatologic History: Reports: None - Infectious Disease History Infectious Disease History: Reports: C-Difficile, Chicken Pox - Past Surgical History HEENT Surgical History: Reports: Tonsillectomy GI Surgical History: Reports: Colonoscopy Male Surgical History: Reports: None Neurological Surgical History: Reports: Discectomy Musculoskeletal Surgical History: Reports: Other (See Below) Other Musculoskeletal Surgeries/Procedures:: disectomy Social & Family History - Family History Family Medical History: No Pertinent Family History - Tobacco Use Tobacco Use Status *Q: Never Tobacco User - Caffeine Use Caffeine Use: Reports: Coffee - Recreational Drug Use Recreational Drug Use: No - Living Situation & Occupation Living situation: Reports: Single Occupation: Employed ED ROS GENERAL - Review of Systems Review Of Systems: See Below Constitutional: Reports: Weakness, Fatigue. Denies: Fever, Chills HEENT: Reports: No Symptoms Respiratory: Reports: No Symptoms Cardiovascular: Reports: No Symptoms GI/Abdominal: Reports: Abdominal Pain, Diarrhea, Decreased Appetite. Denies: Nausea, Vomiting : Reports: No Symptoms Musculoskeletal: Reports: No Symptoms Skin: Reports: No Symptoms Neurological: Reports: No Symptoms ED EXAM, GENERAL - Physical Exam Exam: See Below Exam Limited By: No Limitations General Appearance: Alert, No Apparent Distress Head: Atraumatic, Normocephalic Neck: Normal Inspection, Supple, Non-Tender, Full Range of Motion Respiratory/Chest: No Respiratory Distress, Lungs Clear, Normal Breath Sounds Cardiovascular: Regular Rate, Rhythm, No Edema, No Murmur GI/Abdominal: Normal Bowel Sounds, Soft, Tender (She has significant right lower quadrant discomfort with palpation to much lesser degree left lower quadrant discomfort. No significant suprapubic discomfort. No rigidity rebound or guarding appreciated) Back Exam: Normal Inspection. No: CVA Tenderness (L), CVA Tenderness (R) Extremities: Normal Inspection, No Pedal Edema Neurological: Alert, Oriented, Normal Cognition Course - Vital Signs Last Recorded V/S: Last Vital Signs Temp 36.3 C 03/25/21 06:35 Pulse 77 03/25/21 06:35 Resp 18 03/25/21 06:35 BP 127/85 03/25/21 06:35 Pulse Ox 100 03/25/21 06:35 - Orders/Labs/Meds Orders: Active Orders 24 hr Category Date Time Status Lactated Ringers [Ringers, Lactated] 1,000 ml Med 03/25/21 07:45 Active IV ASDIRECTED Medication Orders Lactated Ringer's (Ringers, Lactated) 1,000 mls @ 150 mls/hr IV ASDIRECTED ERLINDA Last Admin: 03/25/21 09:05 Dose: 150 mls/hr Documented by: MYNOR Labs: Laboratory Tests 03/25/21 03/25/21 03/25/21 Range/Units 07:30 07:50 07:50 WBC 4.91 (4.23-9.07) K/mm3 RBC 5.62 (4.63-6.08) M/mm3 Hgb 15.8 (13.7-17.5) gm/dl Hct 45.6 (40.1-51.0) % MCV 81.1 (79.0-92.2) fl MCH 28.1 (25.7-32.2) pg MCHC 34.6 (32.2-35.5) g/dl RDW Std Deviation 39.4 (35.1-43.9) fL Plt Count 236 (163-337) K/mm3 MPV 10.8 (9.4-12.3) fl Neutrophils % (Manual) 60 (40-60) % Band Neutrophils % 8 (0-10) % Lymphocytes % (Manual) 30 (20-40) % Atypical Lymphs % 0 % Monocytes % (Manual) 2 (2-10) % Eosinophils % (Manual) 0 L (0.8-7.0) % Basophils % (Manual) 0 L (0.2-1.2) Platelet Estimate Adequate Plt Morphology Comment Normal RBC Morph Comment Normal Sodium 143 (136-145) mEq/L Potassium 4.3 (3.5-5.1) mEq/L Chloride 106 (98-107) mEq/L Carbon Dioxide 30 (21-32) mEq/L Anion Gap 11.3 (5-15) BUN 8 (7-18) mg/dL Creatinine 1.0 (0.7-1.3) mg/dL Est Cr Clr Drug Dosing 117.63 mL/min Estimated GFR (MDRD) > 60 (>60) mL/min BUN/Creatinine Ratio 8.0 L (14-18) Glucose 100 H (70-99) mg/dL Calcium 9.5 (8.5-10.1) mg/dL Total Bilirubin 1.7 H (0.2-1.0) mg/dL AST 26 (15-37) U/L ALT 69 H (16-63) U/L Alkaline Phosphatase 70 (46-116) U/L Total Protein 7.6 (6.4-8.2) g/dl Albumin 4.2 (3.4-5.0) g/dl Globulin 3.4 gm/dL Albumin/Globulin Ratio 1.2 (1-2) Lipase 56 L (73-393) U/L Urine Color Light yellow (Yellow) Urine Appearance Clear (Clear) Urine pH 7.0 (5.0-8.0) Ur Specific [place] 1.015 (1.005-1.030) Urine Protein Negative (Negative) Urine Glucose (UA) Negative (Negative) Urine Ketones 1+ H (Negative) Urine Occult Blood Negative (Negative) Urine Nitrite Negative (Negative) Urine Bilirubin Negative (Negative) Urine Urobilinogen 0.2 (0.2-1.0) Ur Leukocyte Esterase Negative (Negative) Meds: Medications Generic Name Dose Route Start Last Admin Trade Name Freq PRN Reason Stop Dose Admin Lactated Ringer's 1,000 mls @ 150 mls/hr 03/25/21 07:45 03/25/21 09:05 Ringers, Lactated IV 150 mls/hr ASDIRECTED ERLINDA Administration Discontinued Medications Generic Name Dose Route Start Last Admin Trade Name Freq PRN Reason Stop Dose Admin Lactated Ringer's 1,000 mls @ 999 mls/hr 03/25/21 07:40 03/25/21 07:55 Ringers, Lactated IV 03/25/21 08:40 999 mls/hr .BOLUS ONE Administration - Radiology Interpretation Free Text/Narrative:: Received a liter of fluid he is doing okay. Labs reviewed white count is not elevated creatinine 1.0 apparently [facility] did send a prescription and I am not sure for what at the patient's request I will send in a prescription start him empirically on vancomycin 125 mg 4 times daily for 10 days and will give him a few Zofran in case these are needed. I explained to the patient absolutely no uncertain terms that he is to return to the worsening symptoms. Of also advised may take him several days before he starts noticing improvement. He should push lots of fluids. Departure - Departure Time of Disposition: 09:46 Disposition: Home, Self-Care 01 Clinical Impression: Clostridioides difficile diarrhea - Discharge Information Referrals: Sander Red MD [Primary Care Provider] - Forms: ED Department Discharge Additional Instructions: Return to the emergency room with any questions problems or worsening symptoms. Push lots of fluids. I have sent 2 prescriptions over to [facility] [place] [facility]. The first 1 is for vancomycin this is an oral antibiotic take 1 4 times daily as close to every 6 hours as practical you do not need to wake up in the middle of the night to do this however. The second prescription is for Zofran, this is for nausea and vomiting use only as needed 1 every 6 hours. Stay away from any antidiarrhea medication. Follow-up with your physician at the end of this week, at least over the phone to update him on how you are doing. Sepsis Event Note (ED) - Evaluation Sepsis Screening Result: No Definite Risk - Focused Exam Vital Signs: Vital Signs Temp Pulse Resp BP Pulse Ox 03/25/21 06:35 36.3 C 77 18 127/85 100 - My Orders Last 24 Hours: My Active Orders 03/25/21 07:45 Lactated Ringers [Ringers, Lactated] 1,000 ml IV ASDIRECTED - Assessment/Plan Last 24 Hours: My Active Orders 03/25/21 07:45 Lactated Ringers [Ringers, Lactated] 1,000 ml IV ASDIRECTED
[2021-03-25] MEDS ORDERED: Lactated Ringers 1,000 ML IV ONE (07:40)
[2021-03-25] MEDS ORDERED: Lactated Ringers 1,000 ML IV SCH (07:45)
== END 2021-03-25 10:10 | disposition home or self-care (01) ==
LOC: JD.ED 06:20
DX: A04.72 Enterocolitis due to Clostridium difficile, not specified as recurrent (principal); Z91.030 Bee allergy status; E66.9 Obesity, unspecified; Z68.37 Body mass index [BMI] 37.0-37.9, adult
CPT/HCPCS: 36415; 80053; 81003; 83690; 85007; 85027; 99284; J7120; 99283

== ENCOUNTER 2021-04-14 17:02 | Emergency (ER) | payer OTHER ==
[2021-04-14] MEDS ORDERED: Sodium Chloride 0.9% 10 ML Syringe FLUSH PRN (18:33)
[2021-04-14] MEDS ORDERED: Sodium Chloride 0.9% 1,000 ML IV ONE (18:41)
--- NOTE | 2021-04-14 18:47 | EDM.PDOC ---
ED HPI GENERAL MEDICAL PROBLEM - General Chief Complaint: Gastrointestinal Problem Stated Complaint: POSS DEHYDRATION Time Seen by Provider: 04/14/21 18:33 Source of Information: Reports: Patient, RN Notes Reviewed History Limitations: Reports: No Limitations - History of Present Illness INITIAL COMMENTS - FREE TEXT/NARRATIVE: Patient is a 35-year-old male who presents to the ER for evaluation of his possible dehydration. Patient notes that he received a diagnosis of C. difficile on March 15. He has been on oral vancomycin and Dificid for this. States that he is still having multiple diarrheal stools 12 or 13 times per day. He is having low-grade fevers of 101.3 F temp max at home fever at time of triage is 99.0 F. He is not been using any sort of medications to medicate the fever. He states he is having some abdominal discomfort. And notes that he does have multiple bouts of watery diarrhea after eating much food at all. He has been seeing Nallely Trejo, surgical SET UP MECHANIC at [facility] in [place], who recommended he come to the ER for possible dehydration. Patient states he gets some mild nausea from time to time, but he has not taken any of his nausea meds in a few days. He does feel dizzy and lightheaded with standing, he is trying to drink fluids, and fluids to stay down, and he is not having any vomiting. He is also noted that he has had issues with his stool being Hemoccult positive however he has not seen any visible blood in his stool at today's visit. Abdomen Pain Score (Numeric/FACES): 4 - Related Data Allergies Allergy/AdvReac Type Severity Reaction Status Date / Time No Known Allergies Allergy Verified 04/14/21 17:27 Home Meds: Home Meds LORazepam [Ativan] 0.5 mg PO BID PRN #4 tab 03/18/21 [Rx] Cyclobenzaprine [Flexeril] 5 mg PO DAILY PRN 03/25/21 [History] Fidaxomicin [Dificid] 200 mg PO BID 04/14/21 [History] Past Medical History HEENT History: Reports: Otitis Media Cardiovascular History: Reports: Other (See Below) Other Cardiovascular History: hyperthropic cardiomyopathy Gastrointestinal History: Reports: Chronic Constipation, Other (See Below) Other Gastrointestinal History: colitis? Musculoskeletal History: Reports: Back Pain, Chronic Psychiatric History: Reports: Anxiety Endocrine/Metabolic History: Reports: Obesity/BMI 30+ - Infectious Disease History Infectious Disease History: Reports: C-Difficile, Chicken Pox - Past Surgical History HEENT Surgical History: Reports: Tonsillectomy GI Surgical History: Reports: Colonoscopy Neurological Surgical History: Reports: Discectomy Musculoskeletal Surgical History: Reports: Other (See Below) Other Musculoskeletal Surgeries/Procedures:: disectomy Social & Family History - Family History Family Medical History: No Pertinent Family History - Tobacco Use Tobacco Use Status *Q: Never Tobacco User Second Hand Smoke Exposure: No - Caffeine Use Caffeine Use: Reports: None - Recreational Drug Use Recreational Drug Use: No - Living Situation & Occupation Living situation: Reports: Single Occupation: Employed ED ROS GENERAL - Review of Systems Review Of Systems: Comprehensive ROS is negative, except as noted in HPI. ED EXAM, GI/ABD - Physical Exam Exam: See Below Exam Limited By: No Limitations General Appearance: Alert, WD/WN, No Apparent Distress Respiratory/Chest: No Respiratory Distress, Lungs Clear, Normal Breath Sounds, No Accessory Muscle Use, Chest Non-Tender Cardiovascular: Normal Peripheral Pulses, Regular Rate, Rhythm, No Edema GI/Abdominal Exam: Normal Bowel Sounds, Soft, No Distention, No Mass, Tender (generalized) Extremities: Normal Inspection, Normal Capillary Refill Neurological: Alert, Oriented, Normal Cognition, No Motor/Sensory Deficits Psychiatric: Normal Affect, Normal Mood Skin Exam: Warm, Dry, Intact, Normal Color, No Rash Course - Vital Signs Last Recorded V/S: Last Vital Signs Temp 99.0 F 04/14/21 17:22 Pulse 87 04/14/21 17:22 Resp 14 04/14/21 17:22 BP 123/91 H 04/14/21 17:22 Pulse Ox 97 04/14/21 17:22 - Orders/Labs/Meds Orders: Active Orders 24 hr Category Date Time Status Peripheral IV Care [RC] . DIRECTED Care 04/14/21 18:33 Ordered Sodium Chloride 0.9% [Normal Saline] 1,000 ml Med 04/14/21 19:35 Ordered IV ONETIME Sodium Chloride 0.9% [Saline Flush] Med 04/14/21 18:33 Active 10 ml FLUSH ASDIRECTED PRN Peripheral IV Insertion Adult [OM.PC] Routine Oth 04/14/21 18:33 Ordered Medication Orders Sodium Chloride (Normal Saline) 1,000 mls @ 999 mls/hr IV ONETIME ONE Stop: 04/14/21 20:35 Last Admin: 04/14/21 19:53 Dose: 999 mls/hr Documented by: MOO Sodium Chloride (Sodium Chloride 0.9% 10 Ml Syringe) 10 ml FLUSH ASDIRECTED PRN PRN Reason: Keep Vein Open Last Admin: 04/14/21 18:39 Dose: 10 ml Documented by: ELOISA Labs: Laboratory Tests 04/14/21 04/14/21 Range/Units 17:49 17:49 WBC 5.93 (4.23-9.07) K/mm3 RBC 5.43 (4.63-6.08) M/mm3 Hgb 15.6 (13.7-17.5) gm/dl Hct 43.3 (40.1-51.0) % MCV 79.7 (79.0-92.2) fl MCH 28.7 (25.7-32.2) pg MCHC 36.0 H (32.2-35.5) g/dl RDW Std Deviation 40.9 (35.1-43.9) fL Plt Count 231 (163-337) K/mm3 MPV 11.5 (9.4-12.3) fl Neut % (Auto) 57.4 (34.0-67.9) % Lymph % (Auto) 29.8 (21.8-53.1) % [place] % (Auto) 11.1 (5.3-12.2) % Eos % (Auto) 1.5 (0.8-7.0) Baso % (Auto) 0.2 (0.1-1.2) % Neut # (Auto) 3.40 (1.78-5.38) K/mm3 Lymph # (Auto) 1.77 (1.32-3.57) K/mm3 [place] # (Auto) 0.66 (0.30-0.82) K/mm3 Eos # (Auto) 0.09 (0.04-0.54) K/mm3 Baso # (Auto) 0.01 (0.01-0.08) K/mm3 Sodium 144 (136-145) mEq/L Potassium 3.9 (3.5-5.1) mEq/L Chloride 107 (98-107) mEq/L Carbon Dioxide 25 (21-32) mEq/L Anion Gap 15.9 H (5-15) BUN 5 L (7-18) mg/dL Creatinine 0.9 (0.7-1.3) mg/dL Est Cr Clr Drug Dosing 130.70 mL/min Estimated GFR (MDRD) > 60 (>60) mL/min BUN/Creatinine Ratio 5.6 L (14-18) Glucose 92 (70-99) mg/dL Calcium 8.9 (8.5-10.1) mg/dL Total Bilirubin 1.5 H (0.2-1.0) mg/dL AST 30 (15-37) U/L ALT 79 H (16-63) U/L Alkaline Phosphatase 69 (46-116) U/L Total Protein 7.2 (6.4-8.2) g/dl Albumin 4.0 (3.4-5.0) g/dl Globulin 3.2 gm/dL Albumin/Globulin Ratio 1.3 (1-2) Meds: Medications Generic Name Dose Route Start Last Admin Trade Name Freq PRN Reason Stop Dose Admin Sodium Chloride 1,000 mls @ 999 mls/hr 04/14/21 19:35 04/14/21 19:53 Normal Saline IV 04/14/21 20:35 999 mls/hr ONETIME ONE Administration Sodium Chloride 10 ml 04/14/21 18:33 04/14/21 18:39 Sodium Chloride 0.9% 10 Ml Syringe FLUSH 10 ml ASDIRECTED PRN Administration Keep Vein Open Discontinued Medications Generic Name Dose Route Start Last Admin Trade Name Freq PRN Reason Stop Dose Admin Sodium Chloride 1,000 mls @ 999 mls/hr 04/14/21 18:41 04/14/21 18:52 Normal Saline IV 04/14/21 19:41 999 mls/hr ONETIME ONE Administration - Re-Assessments/Exams Free Text/Narrative Re-Assessment/Exam: 04/14/21 18:47 Patient presents to the ER for his multiple bouts of diarrhea, with possible dehydration. Have ordered basic labs to be obtained, will give IV fluids. Patient is a fairly big gentleman, so he might need 2 bags of IV fluids for management. Departure - Departure Time of Disposition: 20:05 Disposition: Home, Self-Care 01 Condition: Good Clinical Impression: C. difficile diarrhea, Dehydration - Discharge Information *PRESCRIPTION DRUG MONITORING PROGRAM REVIEWED*: No *COPY OF PRESCRIPTION DRUG MONITORING REPORT IN PATIENT HEBER: No Instructions: Food Choices to Help Relieve Diarrhea, Adult, Dehydration, Adult, [id number] Referrals: Sander Red MD [Primary Care Provider] - Forms: ED Department Discharge Additional Instructions: You were evaluated in the ER today for your copious diarrhea associated with a C. difficile infection. You were given IV fluids in the ER, and this seemed to help relieve some of your dizziness/lightheadedness. Laboratory evaluation did demonstrate slight dehydration, and IV fluids again were helpful for this. Please continue all the medications as previously prescribed, and follow-up with your regular provider tomorrow for ongoing management. Try to keep yourself well-hydrated, fluids like Gatorade/Powerade or Pedialyte would be sufficient to keep electrolyte replacement at its maximum. You can take 500 mg Tylenol or 600 mg ibuprofen every 6 hours as needed for ongoing pain management. Do not exceed 4000 mg Tylenol or 3200 mg ibuprofen in a 24-hour time span. Do not hesitate to return to the ER at any time if symptoms change or worsen. Sepsis Event Note (ED) - Evaluation Sepsis Screening Result: No Definite Risk - Focused Exam Vital Signs: Vital Signs Temp Pulse Resp BP Pulse Ox 04/14/21 17:22 99.0 F 87 14 123/91 H 97 - My Orders Last 24 Hours: My Active Orders 04/14/21 18:33 Peripheral IV Care [RC] . DIRECTED Sodium Chloride 0.9% [Saline Flush] 10 ml FLUSH ASDIRECTED PRN Peripheral IV Insertion Adult [OM.PC] Routine 04/14/21 19:35 Sodium Chloride 0.9% [Normal Saline] 1,000 ml IV ONETIME - Assessment/Plan Last 24 Hours: My Active Orders 04/14/21 18:33 Peripheral IV Care [RC] . DIRECTED Sodium Chloride 0.9% [Saline Flush] 10 ml FLUSH ASDIRECTED PRN Peripheral IV Insertion Adult [OM.PC] Routine 04/14/21 19:35 Sodium Chloride 0.9% [Normal Saline] 1,000 ml IV ONETIME
[2021-04-14] MEDS: Sodium Chloride 0.9% 1,000 ML IV ONE (19:53)
== END 2021-04-14 20:51 | disposition home or self-care (01) ==
LOC: JD.ED 17:02
DX: A04.72 Enterocolitis due to Clostridium difficile, not specified as recurrent (principal); E86.0 Dehydration; E66.9 Obesity, unspecified; Z68.35 Body mass index [BMI] 35.0-35.9, adult
CPT/HCPCS: 36415; 80053; 85025; 99284; J7030; 99283